=== PATIENT | female | born 1950 | race Caucasian/White ===

== ENCOUNTER 2021-03-25 10:03 | Outpatient (CLI) | payer MEDICARE, BC | END 2021-03-25 10:04 | disposition home or self-care (01) | LOC: CSHMRI 10:03 | PROVIDERS: ATTEND Anesthesiology Pain Medicine | DX: M76.12 Psoas tendinitis, left hip (principal); M54.16 Radiculopathy, lumbar region; M47.816 Spondylosis without myelopathy or radiculopathy, lumbar region; R93.6 Abnormal findings on diagnostic imaging of limbs | CPT/HCPCS: 72148 ==

== ENCOUNTER 2021-04-05 08:15 | Outpatient (CLI) | payer MEDICARE, BC | END 2021-04-05 08:16 | disposition home or self-care (01) | LOC: CSHNM 08:15 | PROVIDERS: ATTEND Anesthesiology Pain Medicine | DX: M53.3 Sacrococcygeal disorders, not elsewhere classified (principal); M47.816 Spondylosis without myelopathy or radiculopathy, lumbar region | CPT/HCPCS: 78306; A9503 ==

== ENCOUNTER 2022-06-15 14:13 | Outpatient (CLI) | payer MEDICARE, BC | END 2022-06-15 14:14 | disposition home or self-care (01) | LOC: CSHMAMMO 14:13 | PROVIDERS: ATTEND Family Medicine | DX: Z12.31 Encounter for screening mammogram for malignant neoplasm of breast (principal); Z00.00 Encounter for general adult medical examination without abnormal findings; R92.1 Mammographic calcification found on diagnostic imaging of breast; Z78.0 Asymptomatic menopausal state; Z91.89 Other specified personal risk factors, not elsewhere classified | CPT/HCPCS: 77063; 77067; 77080 ==